=== PATIENT | male | born 1980 | race Two or more races ===

== ENCOUNTER 2019-06-24 06:29 | Emergency (ER) | payer OTHER ==
[2019-06-24 07:27] VITALS: TEMP 97.9; BMI 31.3
[2019-06-24] MEDS ORDERED: SODIUM CHLORIDE 1,000 ML IV STA (07:51)
[2019-06-24] MEDS ORDERED: ACETAMINOPHEN 1000 MG/100 ML VIAL (NON FORMULARY) IVPB ONE (07:51)
--- NOTE | 2019-06-24 07:52 | PDOC ---
History of Present Illness - General Chief Complaint: Chest Pain Stated Complaint: CHEST DISCOMFORT Time Seen by Provider: 06/24/19 07:35 History Source: Patient Exam Limitations: No Limitations Past History - Travel Traveled outside of the country in the last 30 days: No Close contact w/someone who was outside of country & ill: No - Past Medical History Allergies/Adverse Reactions: Allergies Allergy/AdvReac Type Severity Reaction Status Date / Time No Known Allergies Allergy Verified 06/24/19 07:18 Home Medications: Ambulatory Orders No Home Medications 0 dose .ROUTE UTDICT 11/30/13 COPD: No HTN: Yes (started BP med x's 1 dose) - Suicide/Smoking/Psychosocial Hx Smoking History: Unknown if ever smoked Number of Cigarettes Smoked Daily: 12 Review of Systems - Review of Systems Able to Perform ROS?: Yes Comments:: 06/24/19 07:47 CONSTITUTIONAL: Absent: fever, chills, diaphoresis, generalized weakness, malaise, loss of appetite HEENT: Absent: rhinorrhea, nasal congestion, throat pain, throat swelling, difficulty swallowing, mouth swelling, ear pain, eye pain, visual Changes CARDIOVASCULAR: Present: chest pain Absent: loss of consciousness, palpitations, irregular heart rate, peripheral edema RESPIRATORY: Absent: cough, shortness of breath, dyspnea with exertion, orthopnea, wheezing, stridor, hemoptysis GASTROINTESTINAL: Absent: abdominal pain, abdominal distension, nausea, vomiting, diarrhea, constipation, melena, hematochezia GENITOURINARY: Absent: dysuria, frequency, urgency, hesitancy, hematuria, flank pain, genital pain MUSCULOSKELETAL: Absent: myalgia, arthralgia, joint swelling SKIN: Absent: rash, itching, pallor HEMATOLOGIC/IMMUNOLOGIC: Absent: easy bleeding, easy bruising, lymphadenopathy, frequent infections ENDOCRINE: Absent: unexplained weight gain, unexplained weight loss, heat intolerance, cold intolerance NEUROLOGIC: Absent: headache, focal weakness or paresthesias, dizziness, unsteady gait, seizure, mental status changes, bladder or bowel incontinence PSYCHIATRIC: Absent: anxiety, depression, suicidal or homicidal ideation, hallucinations. Is the patient limited Polish proficient: No *Physical Exam - Vital Signs Last Vital Signs Temp Pulse Resp BP Pulse Ox 97.9 F 73 16 115/82 99 06/24/19 07:20 06/24/19 07:20 06/24/19 07:20 06/24/19 07:20 06/24/19 07:20 - Physical Exam Comments: 06/24/19 07:47 GENERAL: Well developed, well nourished. Awake and alert. No acute distress. HEENT: Normocephalic, atraumatic. PERRLA, EOMI. No conjunctival pallor. Sclera are non- icteric. Moist mucous membranes. Oropharynx is clear. NECK: Supple. Full ROM. No JVD. Carotid pulses 2+ and symmetric, without bruits. No thyromegaly. No lymphadenopathy. CARDIOVASCULAR: Regular rate and rhythm. No murmurs, rubs, or gallops. Distal pulses are 2+ and symmetric. PULMONARY: No evidence of respiratory distress. Lungs clear to auscultation bilaterally. No wheezing, rales or rhonchi. ABDOMINAL: Soft. Non-tender. Non-distended. No rebound or guarding. No organomegaly. Normoactive bowel sounds. MUSCULOSKELETAL Normal range of motion at all joints. No bony deformities or tenderness. No CVA tenderness. EXTREMITIES: No cyanosis. No clubbing. No edema. No calf tenderness. SKIN: Warm and dry. Normal capillary refill. No rashes. No jaundice. NEUROLOGICAL: Alert, awake, appropriate. Cranial nerves 2-12 intact. No deficits to light touch and temperature in face, upper extremities and lower extremities. No motor deficits in the in face, upper extremities and lower extremities. Normoreflexic in the upper and lower extremities. Normal speech. Toes are down- going bilaterally. Gait is normal without ataxia. PSYCHIATRIC: Cooperative. Good eye contact. Appropriate mood and affect. Heart Score/ECG Review - History History: Slightly suspicious - Electrocardiogram EKG: Normal - Age Age: </= 45 - Risk Factors Risk Factors Heart Score: Yes Hx Hypertension, Yes Smoking History Based on the list above the patient has:: 1-2 risk factors - Troponin Troponin: </= normal limit - Score Heart Score - Total: 1 ED Treatment Course - LABORATORY CBC & Chemistry Diagram: 06/24/19 08:00 06/24/19 08:00 - RADIOLOGY Radiology Studies Ordered: Category Date Time Status CHEST PA & LAT [RAD] Stat Radiology 06/24/19 07:43 Ordered Medical Decision Making - Medical Decision Making 06/24/19 07:47 The patient is a 38 y/o M with PMH of HTN, who presents to the ER with chest pain for 3 days. The pt states his chest pain started on Sunday night. He states it is on the L side of his chest and is a dull pain. He notes he had one episode of vomiting and feels numbness down both arms. He notes he is very anxious about his chest pain. He states he saw his primary care doctor for the pain yesterday and states his PCP told him his EKG had "some changes". He states the pain comes and goes. He currently rates it a 5/10. Denies fevers, chills, SOB, SOB with exertion, n/v/d, palpitations, edema and urinary symptoms. A/P: Chest pain On exam S1S2 present, RRR, (-) m/r/g. Lungs CTAB, (-) w/r/r Appears mildly anxious DDx includes but is not limited to: ACS, PNA, atypical chest pain, GERD PERC: 0 VSS, afebrile Cardiac work up ordered Re-evaluate 06/24/19 09:23 CXR does not show any acute chest pathology per radiology EKG: rate 70 BPM, NSR with early repolarizations. QTc: 401. Normal axis. No acute ST-T wave changes Trop negative HEART score: 1 Will do second trop and likely dc home with cards follow up 06/24/19 11:47 Second troponin negative DC home Cards referral given I discussed the physical exam findings, ancillary test results and final diagnoses with the patient. I answered all of the patient's questions. The patient was satisfied with the care received and felt comfortable with the discharge plan and treatment plan. The Patient agrees to follow up with the primary care physician/specialist within 24-72 hours. Return precautions were given. *DC/Admit/Observation/Transfer Diagnosis at time of Disposition: Atypical chest pain - Discharge Dispostion Disposition: HOME Condition at time of disposition: Stable Decision to Admit order: No - Referrals Referrals: Shlomo Rapp MD [Primary Care Provider] - Rolly Black MD [Staff Physician] - - Patient Instructions Printed Discharge Instructions: DI for Atypical Chest Pain Additional Instructions: You were evaluated for your chest pain today Your EKG and lab work were normal Please follow up with your primary care doctor this week Please also follow up with cardiology. A referral has been given to you You may take Tylenol 650mg every 6 hours as needed for pain. Follow the dosing instructions on the bottle Return to the ER for worsening pain, shortness of breath, vomiting, palpitations , or if you have any changes in your symptoms - Post Discharge Activity Forms/Work/School Notes: Back to Work
[2019-06-24] MEDS ORDERED: ACETAMINOPHEN INJECTION 100 ML IVPB ONE (07:56)
[2019-06-24 08:31] LABS: BASO % 0.6 % (0-2.0); EOS % 4.2 % (0-4.5); HEMATOCRIT 49.2 % (35.4-49); HEMOGLOBIN 16.6 GM/dL (11.7-16.9); LYMPH % 17.2 % (8-40); MCH 29.6 pg (25.7-33.7); MCHC 33.7 g/dl (32.0-35.9); MEAN CELL VOLUME 87.9 fl (80-96); MEAN PLT VOLUME 10.1 fl (7.5-11.1); MONO % 7.9 % (3.8-10.2); NEUT % 70.1 % (42.8-82.8); PLATELET COUNT 212 K/MM3 (134-434); RBC 5.59 M/mm3 (4.00-5.60); WHITE BLOOD COUNT 9.7 K/mm3 (4.0-10.0)
[2019-06-24 08:49] LABS: INR 0.97 (0.83-1.09); PROTHROMBIN TIME (PATIENT) 11.4 SEC (9.7-13.0)
[2019-06-24 09:02] LABS: ALBUMIN 4.2 g/dl (3.4-5.0); ALK PHOS 63 U/L (45-117); ANION GAP 6 MMOL/L (8-16); BILIRUBIN,TOTAL 0.6 mg/dL (0.2-1); CALCIUM 9.5 mg/dL (8.5-10.1); CHLORIDE 103 mmol/L (98-107); CO2 27 mmol/L (21-32); CREATININE 0.9 mg/dL (0.55-1.3); GLUCOSE,RANDOM 95 mg/dL (74-106); POTASSIUM 4.7 mmol/L (3.5-5.1); SGOT/AST 22 U/L (15-37); SGPT/ALT 43 U/L (13-61); SODIUM 137 mmol/L (136-145); TOT PROT 7.7 g/dl (6.4-8.2)
[2019-06-24 09:03] LABS: URINE APPEARANCE CLEAR; URINE BILIRUBIN NEGATIVE (NEGATIVE); URINE COLOR YELLOW; URINE GLUCOSE (UA) NEGATIVE (NEGATIVE); URINE KETONE NEGATIVE (NEGATIVE); URINE LEUK ESTERASE NEGATIVE (NEGATIVE); URINE NITRITE NEGATIVE (NEGATIVE); URINE PROTEIN NEGATIVE (NEGATIVE); URINE UROBILINOGEN 0.2 mg/dL (0.2-1.0)
--- NOTE | 2019-06-24 09:38 | PDOC ---
*Physical Exam - Vital Signs Last Vital Signs Temp Pulse Resp BP Pulse Ox 97.9 F 73 16 115/82 99 06/24/19 07:20 06/24/19 07:20 06/24/19 07:20 06/24/19 07:20 06/24/19 07:20 Heart Score/ECG Review - History History: Slightly suspicious - Electrocardiogram EKG: Normal - Age Age: </= 45 - Risk Factors Based on the list above the patient has:: 1-2 risk factors - Troponin Troponin: </= normal limit - Score Heart Score - Total: 1 ED Treatment Course - LABORATORY CBC & Chemistry Diagram: 06/24/19 08:00 06/24/19 08:00 - ADDITIONAL ORDERS Additional order review: Laboratory Results 06/24/19 06/24/19 06/24/19 08:49 08:00 08:00 PT with INR 11.40 INR 0.97 Sodium 137 Potassium 4.7 Chloride 103 Carbon Dioxide 27 Anion Gap 6 L BUN 14.0 Creatinine 0.9 Est GFR (CKD-EPI)AfAm 125.13 Est GFR (CKD-EPI)NonAf 107.97 Random Glucose 95 Calcium 9.5 Magnesium Total Bilirubin 0.6 AST 22 ALT 43 Alkaline Phosphatase 63 Creatine Kinase 136 Troponin I < 0.02 Total Protein 7.7 Albumin 4.2 Urine Color Yellow Urine Appearance Clear Urine pH 5.0 Ur Specific [place] 1.023 Urine Protein Negative Urine Glucose (UA) Negative Urine Ketones Negative Urine Blood Negative Urine Nitrite Negative Urine Bilirubin Negative Urine Urobilinogen 0.2 Ur Leukocyte Esterase Negative 06/24/19 07:53 PT with INR INR Sodium Potassium Chloride Carbon Dioxide Anion Gap BUN Creatinine Est GFR (CKD-EPI)AfAm Est GFR (CKD-EPI)NonAf Random Glucose Calcium Magnesium 2.3 Total Bilirubin AST ALT Alkaline Phosphatase Creatine Kinase Troponin I Total Protein Albumin Urine Color Urine Appearance Urine pH Ur Specific [place] Urine Protein Urine Glucose (UA) Urine Ketones Urine Blood Urine Nitrite Urine Bilirubin Urine Urobilinogen Ur Leukocyte Esterase 06/24/19 08:00 RBC 5.59 MCV 87.9 MCHC 33.7 RDW 13.0 MPV 10.1 Neutrophils % 70.1 Lymphocytes % 17.2 Monocytes % 7.9 Eosinophils % 4.2 Basophils % 0.6 - Medications Given in the ED: ED Medications Discontinued Medications Generic Name Dose Route Start Last Admin Trade Name Freq PRN Reason Stop Dose Admin Acetaminophen 1,000 mg 06/24/19 07:51 06/24/19 08:25 Ofirmev Injection - IVPB 06/24/19 07:52 1,000 mg ONCE ONE Administration Sodium Chloride 1,000 mls @ 1,000 mls/hr 06/24/19 07:51 06/24/19 08:25 Normal Saline - IV 06/24/19 08:50 1,000 mls/hr ASDIR STA Administration Medical Decision Making - Medical Decision Making 06/24/19 09:24 38y/o M h/o HTN p/w several days ongoin atypical chest pain, seen in PCP Dr. Cruz office yesterday, EKG performed and plan for outpt stress testing. presents today for continued sxs, no cough/f/c, no PE risk factors vss exam wnl EKG with early repol changes but no acute ischemic changes atypical chest pain in low risk patient, heart score 1. cxr normal, labs including trop normal. check 2nd trop then dispo to continue outpt evalation with cardiology per PCP plan *DC/Admit/Observation/Transfer Diagnosis at time of Disposition: Atypical chest pain - Referrals Referrals: Shlomo Rapp MD [Primary Care Provider] - - Patient Instructions - Post Discharge Activity
--- NOTE | 2019-06-24 10:56 | EKG ---
Test Reason : Blood Pressure : / mmHG Vent. Rate : 070 BPM Atrial Rate : 070 BPM P-R Int : 178 ms QRS Dur : 104 ms QT Int : 372 ms P-R-T Axes : 046 075 052 degrees QTc Int : 401 ms NORMAL SINUS RHYTHM EARLY REPOLARIZATION NORMAL ECG NO PREVIOUS ECGS AVAILABLE Confirmed by Hermelindo Becker ([id number]) on 06/24/2019 10:56:32 AM Referred By: Confirmed By:Hermelindo Becker
[2019-06-24 11:04] LABS: ANISOCYTOSIS 0; MACROCYTOSIS 0; PLATELET ESTIMATE NORMAL
[2019-06-24 12:04] VITALS: BP 117/75; PULSE 66
== END 2019-06-24 12:05 | disposition home or self-care (01) ==
LOC: JER 06:29
PROC: 3E033NZ Introduction of Analgesics, Hypnotics, Sedatives into Peripheral Vein, Percutaneous Approach (ICD-10-PCS; principal; 2019-06-24)
DX: R07.89 Other chest pain (principal)
CPT/HCPCS: 36415; 71046-TC-FY; 80053; 81003; 82550; 83735; 84484; 85025; 85610; 93005; 93010; 99284-25; J0131; J7030

== ENCOUNTER 2021-11-30 00:25 | Emergency (ER) | payer OTHER ==
[2021-11-30 00:42] VITALS: BP 139/92; PULSE 80; TEMP 98.7; BMI 32.8
[2021-11-30] MEDS ORDERED: ASPIRIN 81 MG CHEWABLE TABLETS PO ONE (01:28)
[2021-11-30] MEDS ORDERED: ASPIRIN 81 MG CHEWABLE TABLETS ONE (01:44)
[2021-11-30 02:11] LABS: BASO % 0.7 % (0-2.0); HEMOGLOBIN 16.2 GM/dL (11.7-16.9); LYMPH % 27.9 % (8-40); MCH 28.7 pg (25.7-33.7); MCHC 33.1 g/dl (32.0-35.9); MEAN CELL VOLUME 86.9 fl (80-96); MEAN PLT VOLUME 9.9 fl (7.5-11.1); MONO % 9.1 % (3.8-10.2); NEUT % 58.3 % (42.8-82.8); PLATELET COUNT 203 10^3/uL (134-434); RBC 5.64 M/mm3 (4.00-5.60); RDW 12.8 % (11.9-15.9); WHITE BLOOD COUNT 8.9 K/mm3 (4.0-10.0)
[2021-11-30 02:20] LABS: CALCIUM 9.1 mg/dL (8.5-10.1)
[2021-11-30 02:21] LABS: ALBUMIN 4.1 g/dl (3.4-5.0)
[2021-11-30 02:24] LABS: CREATININE 0.8 mg/dL (0.55-1.3)
[2021-11-30 02:26] LABS: BILIRUBIN,TOTAL 0.5 mg/dL (0.2-1); TOT PROT 7.5 g/dl (6.4-8.2)
== END 2021-11-30 04:59 | disposition home or self-care (01) ==
LOC: JER 00:25
DX: R07.9 Chest pain, unspecified (principal)
CPT/HCPCS: 36415; 80053; 84484; 85025; 93005; 93010; 99285-25